=== PATIENT | female | born 1975 | race Two or more races ===

== ENCOUNTER 2025-04-28 11:57 | Emergency (ER) | payer OTHER ==
[~2025-04-28] VITALS: Ht 160 cm; Wt 55.8 kg
[2025-04-28] MEDS ORDERED: NEURONTIN300 MG (12:08)
[2025-04-28] MEDS ORDERED: TRAMADOL HCL E100 M1 (12:08)
[2025-04-28] MEDS ORDERED: ATIVAN0.5 M1 (12:09)
[2025-04-28] MEDS ORDERED: MEGESTROL ACETA20 MG (12:10)
[2025-04-28] MEDS ORDERED: MORPHINE SULFATE 2 MG/ML SYRINGE IV STA (12:45)
[2025-04-28] MEDS ORDERED: 0.9 % SODIUM CHLORIDE 1,000 ML IV STA (12:45)
[2025-04-28 13:12] LABS: BASO % 0.6 % (0.1-1.2); EOS # 0.01 (0.04-0.54); EOS % 0.6 % (0.7-7.0); LYMPH # 0.93 (1.18-3.74); LYMPH % 52.0 % (19.3-53.1); MEAN PLATELET VOLUME 9.10 fl (9.4-12.4); MONO # 0.08 (0.24-0.82); MONO % 4.5 % (4.7-12.5); NEUT # 0.76 (1.56-6.13); NEUT % 42.3 % (34.0-71.1); RED CELL DISTRIBUTION WIDTH 14.4 % (11.6-14.4)
[2025-04-28 13:33] LABS: BUN CREA RATIO 22.0 (7.0-25.0); CREATININE SERUM 0.63 mg/dL (0.55-1.02); GFR 101.29; GLUCOSE FASTING 108.0 mg/dL (65-100); OSMOLALITY SERUM 264.0 MOSM/KG (275-295)
[2025-04-28 13:56] LABS: URINE APPEARANCE Clear; URINE BILIRRUBIN Negative (NEGATIVE); URINE BLOOD Large; URINE COLOR Dark Yellow; URINE GLUCOSE Negative (NEGATIVE); URINE KETONE Trace (NEGATIVE); URINE LEUKOCYTE Trace; URINE NITRATE Negative; URINE PROTEIN 30 (NEGATIVE); URINE UROBILINOGEN 1.0 E.U./dl
[2025-04-28 14:00] LABS: URINE BACTERIA 27.6 uL (0.0-1933); URINE EPITHELIAL CELLS 22.4 uL (0.0-38.8); URINE RBC 721.7 uL (0.0-20.8); URINE WBC 7.0 uL (0.0-23.2)
[2025-04-28 14:08] LABS: URINE CAST 0.14 uL (0.0-1.40)
[2025-04-28] MEDS ORDERED: FAMOTIDINE/PF 20 MG/2 ML VIAL IV PUSH STA (14:49)
[2025-04-28] MEDS ORDERED: FAMOTIDINE/PF 20 MG/2 ML VIAL ONE (15:42)
[2025-04-28] MEDS ORDERED: 0.9 % SODIUM CHLORIDE 1,000 ML IV ONE (18:30)
[2025-04-28] MEDS ORDERED: MORPHINE SULFATE 4 MG/ML CARTRIDGE IV ONE (18:30)
== END 2025-04-28 20:33 | disposition home or self-care (01) ==
LOC: ER 11:58
PROVIDERS: General Practice
DX: R10.9 Unspecified abdominal pain (principal); C78.6 Secondary malignant neoplasm of retroperitoneum and peritoneum; C56.1 Malignant neoplasm of right ovary